=== PATIENT | female | born 1960 | race Hispanic/Latino ===

== ENCOUNTER → 2020-02-05 | Outpatient (CLI) | payer OTHER ==
[~2020-02-05] MED LIST: FENTANYL CITRATE/PF 100MCG/2 ML INJ ONE; LIDOCAINE HCL 1% LOCAL INJ 20 ML VIAL ONE; MIDAZOLAM HCL 2 MG/2 ML VIAL ONE
[2020-02-05 08:14] LABS: HEMOGLOBIN 15.2 g/dL (12.0-16.0)
[2020-02-05 08:29] LABS: INR 0.95; PROTHROMBIN TIME 13.2 seconds (11.9-14.5)
[2020-02-05 08:30] LABS: PARTIAL THROMBOPLASTIN TIME 29.1 seconds (23.8-35.5)
--- NOTE | 2020-02-05 10:00 | Diagnostic Imaging Report ---
PROCEDURE: Ultrasound-guided nonfocal liver biopsy Procedural Personnel Attending physician(s): Samuel Rowell MD Fellow physician(s): None Resident physician(s): None Advanced practice provider(s): None Pre-procedure diagnosis: Elevated liver enzymes Post-procedure diagnosis: Same Indication: Organ dysfunction Previous biopsy of same target (QCDR): No Additional clinical history: None Complications: No immediate complications. IMPRESSION: Ultrasound-guided biopsy of right liver. Plan: Specimen(s) sent for evaluation. PROCEDURE SUMMARY: - Percutaneous US-guided nonfocal right liver core biopsy - Additional procedure(s): None PROCEDURE DETAILS: Pre-procedure Reference imaging for biopsy target: None Consent: Informed consent for the procedure including risks, benefits and alternatives was obtained and time-out was performed prior to the procedure. Preparation: The site was prepared and draped using maximal sterile barrier technique including cutaneous antisepsis. Anesthesia/sedation Level of anesthesia/sedation: Moderate sedation (conscious sedation) 1mg Versed, 50mcg fentanyl Anesthesia/sedation administered by: Independent trained observer under attending supervision with continuous monitoring of the patient?s level of consciousness and physiologic status Total intra-service sedation time (minutes): 30 Imaging prior to biopsy The patient was positioned supine. Initial ultrasound was performed. Biopsy target: - Maximal diameter (cm): NA - Location: Right liver Other findings: None Biopsy Local anesthesia was administered. Under US guidance, the biopsy needle was advanced to the target and biopsy was performed. Coaxial needle: 17 gauge Core needle biopsy device: [employer] Core needle size: 18 gauge Number of core specimens: 3 Needle removal The biopsy needle was removed and a sterile dressing was applied. Tract embolization: None Imaging following biopsy Immediate post-biopsy ultrasound was performed. Post-biopsy imaging findings: No hematoma Additional Details Additional description of procedure: None Equipment details: None Specimens removed: Biopsy samples as detailed above Estimated blood loss (mL): Less than 10 Standardized report: [id number] Attestation Signer name: Samuel Rowell MD I attest that I was present for the entire procedure. I reviewed the stored images and agree with the report as written. Signed by: Samuel Rowell MD on 02/05/2020 9:56 AM
== END ==
LOC: US 07:54
PROVIDERS: ATTEND Internal Medicine Gastroenterology
DX: K76.0 Fatty (change of) liver, not elsewhere classified (principal); Z71.3 Dietary counseling and surveillance; E66.9 Obesity, unspecified
CPT/HCPCS: 36415; 47000; 76942; 85014; 85049; 85610; 85730; 88307; 88313; J2001; J2250; J3010; U0002

== ENCOUNTER 2021-12-03 09:40 | Observation (INO) | payer OTHER ==
[~2021-12-03] VITALS: Ht 149.9 cm; Wt 80.7 kg
[2021-12-03] MEDS ORDERED: SODIUM CHLORIDE 0.9% 1000ML 1,000 ML IV ONE ×2 (10:00→11:45)
[2021-12-03] MEDS ORDERED: MECLIZINE HCL 12.5 MG TAB PO ONE (10:00)
[2021-12-03 10:47] LABS: PROTHROMBIN TIME 14.1 seconds (11.9-14.5)
[2021-12-03 10:48] LABS: PARTIAL THROMBOPLASTIN TIME 28.2 seconds (23.8-35.5)
[2021-12-03 10:54] LABS: ALBUMIN 3.8 g/dL (3.5-5.0); ALBUMIN/GLOBULIN RATIO 1.7 (0.8-2.0); ANION GAP 13.9 mmol/L (8-16); CALCIUM 8.7 mg/dL (8.4-10.2); CREATININE, SERUM 0.7 mg/dL (0.57-1.11)
[2021-12-03 11:04] LABS: POTASSIUM 2.9 mmol/L (3.5-5.1)
[2021-12-03 11:11] LABS: BASOPHILS # (AUTO) 0.1 (0.0-0.1); BASOPHILS % 1.2 % (0.0-1.0); EOSINOPHILS # (AUTO) 0.1 (0.0-0.4); EOSINOPHILS % 2.9 % (0.0-6.0); HEMOGLOBIN 12.8 g/dL (12.0-16.0); LYMPHOCYTES % 41.7 % (18.0-39.1); MEAN CORPUSCULAR HEMOGLOBIN 29.6 pg (28-32); MEAN CORPUSCULAR HGB CONC 32.8 g/dL (31-35); MEAN CORPUSCULAR VOLUME 90.3 fL (81-99); MONOCYTES # (AUTO) 0.7 (0.2-0.8); NEUTROPHILS % 40.2 % (38.7-80.0); PLATELET COUNT 280 x10e3/uL (140-360); RED BLOOD COUNT 4.32 x10e6/uL (3.6-5.1); RED CELL DISTRIBUTION WIDTH 12.1 % (11.7-14.4)
[2021-12-03] MEDS ORDERED: POTASSIUM CHLORIDE 20MEQ/100ML 200 ML IV ONE (11:30)
[2021-12-03] MEDS ORDERED: POTASSIUM CHLORIDE 20 MEQ TAB CR PO ONE (12:00)
[2021-12-03] MEDS ORDERED: SODIUM CHLORIDE FLUSH 10 ML SYR INJ PRN (16:45)
[2021-12-03 20:21] VITALS: BP 164/80
[2021-12-03 20:24] VITALS: BP 164/80
[2021-12-03] MEDS ORDERED: PREDNISONE5 MG PO (20:36)
[2021-12-03 20:38] VITALS: BP 164/80
[2021-12-03] MEDS: ACETAMINOPHEN 325 MG TAB PO PRN (22:04)
[2021-12-04] VITALS (7 sets, daily range): BP systolic 114–164; BP diastolic 62–91
[2021-12-04] MEDS ORDERED: SIMPONI AR50 MG/4 ML IV (05:59)
[2021-12-04] MEDS ORDERED: CELEBREX200 MG PO (05:59)
[2021-12-04] MEDS ORDERED: LEVOTHYROXINE75 MCG PO (05:59)
[2021-12-04] MEDS ORDERED: LOSARTAN-HCTZ1 EACH PO (05:59)
[2021-12-04] MEDS ORDERED: RABEPRAZOLE SOD20 MG PO (05:59)
[2021-12-04] MEDS ORDERED: LORTAB 10 MG-3473 ML PO (06:00)
[2021-12-04 06:05] LABS: BASOPHILS # (AUTO) 0.1 (0.0-0.1); BASOPHILS % 1.4 % (0.0-1.0); EOSINOPHILS # (AUTO) 0.2 (0.0-0.4); EOSINOPHILS % 5.2 % (0.0-6.0); HEMATOCRIT 39.7 % (34.2-44.1); HEMOGLOBIN 12.5 g/dL (12.0-16.0); LYMPHOCYTES # (AUTO) 2.3 (1.0-3.2); LYMPHOCYTES % 54.4 % (18.0-39.1); MEAN CORPUSCULAR HEMOGLOBIN 29.5 pg (28-32); MEAN CORPUSCULAR HGB CONC 31.5 g/dL (31-35); MEAN CORPUSCULAR VOLUME 93.6 fL (81-99); MONOCYTES # (AUTO) 0.6 (0.2-0.8); MONOCYTES % 14.4 % (4.4-11.3); NEUTROPHILS # (AUTO) 1.1 (2.1-6.9); NEUTROPHILS % 24.6 % (38.7-80.0); PLATELET COUNT 248 x10e3/uL (140-360); RED BLOOD COUNT 4.24 x10e6/uL (3.6-5.1); RED CELL DISTRIBUTION WIDTH 12.2 % (11.7-14.4)
[2021-12-04 06:17] LABS: ANION GAP 14.9 mmol/L (8-16); CALCIUM 9.1 mg/dL (8.4-10.2); CREATININE, SERUM 0.7 mg/dL (0.57-1.11); POTASSIUM 3.9 mmol/L (3.5-5.1)
[2021-12-04] MEDS: ACETAMINOPHEN 325 MG TAB PO PRN (13:32)
[2021-12-04] MEDS: MECLIZINE HCL 12.5 MG TAB PO PRN (13:32)
[2021-12-04] MEDS: LIDOCAINE 4% PATCH TP SCH (13:32)
[2021-12-04] MEDS ORDERED: PREDNISONE 5 MG TAB PO SCH (14:00)
[2021-12-05] VITALS (8 sets, daily range): BP systolic 109–152; BP diastolic 76–99
[2021-12-05] MEDS: LEVOTHYROXINE SODIUM 75 MCG TAB PO SCH (06:10)
[2021-12-05 07:30] LABS: BASOPHILS # (AUTO) 0.1 (0.0-0.1); BASOPHILS % 1.2 % (0.0-1.0); EOSINOPHILS # (AUTO) 0.3 (0.0-0.4); HEMATOCRIT 38.2 % (34.2-44.1); HEMOGLOBIN 12.3 g/dL (12.0-16.0); LYMPHOCYTES # (AUTO) 2.1 (1.0-3.2); LYMPHOCYTES % 50.4 % (18.0-39.1); MEAN CORPUSCULAR HEMOGLOBIN 29.4 pg (28-32); MEAN CORPUSCULAR HGB CONC 32.2 g/dL (31-35); MEAN CORPUSCULAR VOLUME 91.2 fL (81-99); MONOCYTES # (AUTO) 0.5 (0.2-0.8); MONOCYTES % 12.3 % (4.4-11.3); NEUTROPHILS # (AUTO) 1.3 (2.1-6.9); NEUTROPHILS % 30.1 % (38.7-80.0); PLATELET COUNT 254 x10e3/uL (140-360); RED BLOOD COUNT 4.19 x10e6/uL (3.6-5.1); RED CELL DISTRIBUTION WIDTH 12.1 % (11.7-14.4)
[2021-12-05 07:42] LABS: ANION GAP 14.8 mmol/L (8-16); CALCIUM 9.3 mg/dL (8.4-10.2); CREATININE, SERUM 0.69 mg/dL (0.57-1.11); POTASSIUM 3.8 mmol/L (3.5-5.1)
[2021-12-05] MEDS: CELECOXIB 200 MG CAP PO SCH (09:20)
[2021-12-05] MEDS: LIDOCAINE 4% PATCH TP SCH (09:21)
[2021-12-05] MEDS: ACETAMINOPHEN 325 MG TAB PO PRN (13:29)
[2021-12-05] MEDS: MECLIZINE HCL 12.5 MG TAB PO PRN (13:29)
[2021-12-05] MEDS ORDERED: HYDROCODONE/APAP 5MG-325MG TAB PO ONE (16:00)
[2021-12-05] MEDS ORDERED: HYDROCODONE/APAP 5MG-325MG TAB PO PRN (17:30)
[2021-12-06 00:06] VITALS: BP 139/70
[2021-12-06 05:21] VITALS: BP 147/72
[2021-12-06] MEDS: LEVOTHYROXINE SODIUM 75 MCG TAB PO SCH (05:28)
[2021-12-06 08:00] VITALS: BP 142/82
[2021-12-06 08:06] VITALS: BP 142/82
[2021-12-06] MEDS: CELECOXIB 200 MG CAP PO SCH (08:44)
[2021-12-06] MEDS: LIDOCAINE 4% PATCH TP SCH (08:44)
[2021-12-06] MEDS ORDERED: MECLIZINE HCL12.5 MG PO (10:52)
== END 2021-12-06 11:45 | disposition home or self-care (01) ==
LOC: ER 09:47 → ERHOLD 16:37 → MED/SURG3 19:52
PROVIDERS: ADMIT Internal Medicine; ATTEND Internal Medicine
DX: R42 Dizziness and giddiness (principal); E03.9 Hypothyroidism, unspecified; K21.9 Gastro-esophageal reflux disease without esophagitis; M06.9 Rheumatoid arthritis, unspecified; Z20.822 Contact with and (suspected) exposure to COVID-19; I10 Essential (primary) hypertension; E66.01 Morbid (severe) obesity due to excess calories; E87.6 Hypokalemia; Z98.890 Other specified postprocedural states; Z68.36 Body mass index [BMI] 36.0-36.9, adult
CPT/HCPCS: 0223U; 36415 ×3; 70450; 70551; 80048 ×2; 80053; 83735; 85025 ×3; 85610; 85730; 97116 ×2; 97162; 97530 ×2; 99284; G0378 ×4; J3480; J7030; J8597 ×3